=== PATIENT | male | born 1935 | race Caucasian/White ===

== ENCOUNTER 2018-11-08 10:09 | Inpatient (IN) | payer MEDICARE ==
[~2018-11-08] VITALS: Ht 170.2 cm; Wt 104.9 kg
[~2018-11-08 10:09] MED LIST: ASPIRIN E.C. 8181 MG PO; CATAFLAM50 MG PO; DULERA1 ARO IH; ENTOCORT EC3 MG PO; FLAX SEED OIL1000 MG PO; FLOMAX 0.40.4 MG/CAP PO; LIQUID TEARS 1515 ML OP; NIRAVAM0.25 MG PO; NORCO 325 MG-7.1 TAB PO; PERSANTINE50 MG; PROBIOTIC FORMU1 CAP PO; SYNTHROID 0.0.025 MG PO; TYLENOL 325MG325 MG PO; ZOCOR 20MG20 MG PO
[2019-01-13] VITALS (13 sets, daily range): BP systolic 120–159; BP diastolic 56–82; PULSE 74–98; TEMP 97.5–98.1
[2019-01-13] MEDS ORDERED: ULTRAM 50MG TAB50 MG PO (04:03)
[2019-01-13] MEDS ORDERED: DULERA1 AR1 IH (04:04)
[2019-01-13] MEDS ORDERED: CLARISPRAY9.9 ML NS (04:06)
[2019-01-13] MEDS ORDERED: COZAAR100 MG PO (04:07)
[2019-01-13] MEDS ORDERED: PROSCAR 5MG5 MG PO (04:08)
[2019-01-13] MEDS ORDERED: SINGULAIR 110 MG/TAB PO (04:08)
[2019-01-13] MEDS ORDERED: ELIQUIS 5MG PO (04:09)
[2019-01-13] MEDS ORDERED: VENTOLIN0.09 MG IH (04:19)
[2019-01-13] MEDS ORDERED: PROTONIX 40MG T40 MG PO (04:20)
[2019-01-13] MEDS ORDERED: LASIX 20MG TABL20 MG PO (04:20)
[2019-01-13] MEDS ORDERED: PREDNISONE20 MG PO (04:22)
[2019-01-13] MEDS ORDERED: ASPIRIN 81M81 MG/TA2 PO (05:39)
[2019-01-13] MEDS ORDERED: ELIQUIS 2.5 PO (05:41)
[2019-01-13] MEDS ORDERED: FIBERCON PO (05:42)
[2019-01-13] MEDS ORDERED: HCTZ 25MG TAB25 MG PO (05:43)
[2019-01-13] MEDS ORDERED: MELAT3MGTAB PO (05:45)
[2019-01-13] MEDS ORDERED: SYNTHROID 0.0.025 MG PO (05:49)
--- NOTE | 2019-01-13 06:25 | NUR ---
Patient admitted to the floor via from admission and prepared for surgery. Admission B and assessment completed. Med-rec and allergies reviewed and confirmed. Patient prepared for surgery with no incidents. 20 g IV started to right hand, pre-op medications, and left shoulder scrubbed for surgery. Report called to NORM Hunter. Patient sent down to surgery with Sagar at this time.
--- NOTE | 2019-01-13 11:47 | NUR ---
Telephone report recieved from PACU
--- NOTE | 2019-01-13 12:17 | NUR ---
Pt arrived on bed, accompanied by 3 family members. Bruising noted on Left shoulder/bicep area. Gauze and tegaderm in place on right shoulder too from skin tear that occured during surgery - dressing is CDI. Aquacell dressing over incision CDI Pt AAOx4
--- NOTE | 2019-01-13 15:42 | NUR ---
SW met with patient and to discuss discharge planning. [place]. Patients PCP is Dr Juni Cornelius and he obtains his medications from [facility] pharmacy. Patient has PT set up outpatient in [place] for thursday. He reports they have a dpoahc but did not bring it with them. There are no anticipated discharge needs at this time. Patient to [place] home with .
--- NOTE | 2019-01-13 23:15 | NUR ---
PT WAS UP WALKING THIS NOC. WALKED FROM BED TO CARPETED AREA IN [place] THEN BACK TO BED. PT EDUCATED ABOUT NOT USING LT ARM TO LIFT HIMSELF UP. AMBULATED WELL AT THIS TIME. WAS STEADY ON FEET.
[2019-01-14 04:13] VITALS: BP 145/72; PULSE 88; TEMP 97.5
--- NOTE | 2019-01-14 06:03 | NUR ---
PT HAD UNEVENTFUL NIGHT. ICE HAS REMAINED ON SHOULDER OVERNIGHT WITH CRYOCUFF. DRESSING HAS NOTED DRAINAGE, WILL WAIT FOR PROVIDER TO CHANGE DRESSING. NO NEED FOR PAIN MEDICATION OVERNIGHT.
--- NOTE | 2019-01-14 06:40 | NUR ---
awake resting in bed, bedside shift report received from PARESH Hawthorne
[2019-01-14 07:15] VITALS: BP 145/69; PULSE 79; TEMP 98
--- NOTE | 2019-01-14 07:45 | NUR ---
had breakast and tolerated well, gonzalez catheter discontinued, instructed to call for help when needs to void, verbalizes understanding
[2019-01-14 07:59] LABS: HEMATOCRIT 35.1 % (42.0-52.0)
--- NOTE | 2019-01-14 08:44 | NUR ---
full assessment completed, see interventions for further info, has large amount bruising to left shoulder and aquacel dressing has large amount drainage, Dr Wong in earlier and assessed and is aware, he was up to the bathroom with [employer] but only voided small amount, will instruct on use of urinal with next void
[2019-01-14] MEDS ORDERED: ELIQUIS 2.5 PO (08:51)
[2019-01-14] MEDS ORDERED: NORCO 325 MG-7.1 TAB PO (08:52)
[2019-01-14] MEDS ORDERED: ROXICODONE 55 MG/TAB PO (08:52)
--- NOTE | 2019-01-14 09:03 | NUR ---
occupational therapy in to work with patient
--- NOTE | 2019-01-14 09:27 | NUR ---
Initial visit; Patient thanked [facility] [employer] for looking in in on him and offering God's blessings and prayer.
--- NOTE | 2019-01-14 09:41 | NUR ---
physical therapy in working with patient
--- NOTE | 2019-01-14 09:45 | NUR ---
voided approx 100ml clear yellow urine in urinal but also had some urine on the floor
--- NOTE | 2019-01-14 10:00 | NUR ---
aquacel dressing removed from left shoulder, has some bleeding and there is a skin tear on medial side of incision approx 5cm, telfa placed over this and aquacel placed over incision and 4in aquacel placed over area where telfa was not covered, incision is sealed with aquacel
--- NOTE | 2019-01-14 10:16 | NUR ---
ambulates into bathroom and voids but unable to get urine into commode
--- NOTE | 2019-01-14 11:29 | NUR ---
Helen Torres APRN notified of dressing change
--- NOTE | 2019-01-14 12:49 | NUR ---
has had lunch and tolerated well, is ready for discharge
--- NOTE | 2019-01-14 13:20 | NUR ---
discharge instructions given to patient and his family, verbalizes understanding
--- NOTE | 2019-01-14 13:31 | NUR ---
discharged per WC
== END 2019-01-14 13:31 | disposition home or self-care (01) | DRG 483 ==
LOC: JCC 01-13 05:01
PROVIDERS: ADMIT Orthopaedic Surgery
PROC: 0RRK0JZ Replacement of Left Shoulder Joint with Synthetic Substitute, Open Approach (ICD-10-PCS; principal; 2019-01-13 07:30)
DX: M19.012 Primary osteoarthritis, left shoulder (principal); I10 Essential (primary) hypertension; I48.2 Chronic atrial fibrillation; J45.909 Unspecified asthma, uncomplicated; E78.5 Hyperlipidemia, unspecified; Z85.828 Personal history of other malignant neoplasm of skin; Z95.0 Presence of cardiac pacemaker
CPT/HCPCS: A4314; A4566; A4619; A9284; C1713; C1776; J0171; J0690; J1100; J1720; J2250; J2370; J2405; J2704; J2795; J3010; J3370; J7050; J7120

== ENCOUNTER → 2019-01-06 | Outpatient (CLI) | payer MEDICARE ==
[~2019-01-06] MED LIST changes: +FIBERCON; +HCTZ 25MG TAB25 MG PO
[2019-01-06 13:22] LABS: HIV 1/2 Antibodies Non-Reactive; HIV-1p24 Antigen Non-Reactive
== END ==
LOC: COL.LAB 12:10
PROVIDERS: Orthopaedic Surgery
DX: Z01.812 Encounter for preprocedural laboratory examination (principal); M19.012 Primary osteoarthritis, left shoulder